=== PATIENT | male | born 1990 | race Caucasian/White ===

== ENCOUNTER 2020-05-23 18:15 | Emergency (ER) | payer MEDICAID, OTHER ==
[~2020-05-23] VITALS: Ht 182.9 cm; Wt 72.7 kg
[2020-05-23 19:03] VITALS: BP 133/82
== END 2020-05-23 19:06 ==
LOC: ER 18:16
DX: R51 Headache (principal); V89.1XXA Person injured in unspecified nonmotor-vehicle accident, nontraffic, initial encounter; Y93.89 Activity, other specified; Y92.89 Other specified places as the place of occurrence of the external cause; Y99.8 Other external cause status
CPT/HCPCS: 99283